=== PATIENT | male | born 1985 | race Asian ===

== ENCOUNTER 2025-01-10 09:35 | Emergency (ER) | payer SELFPAY ==
[~2025-01-10] VITALS: Ht 177.8 cm; Wt 84.0 kg
[2025-01-10 09:37] VITALS: O2SAT 97
[2025-01-10] MEDS: AMOXICILLIN/POTASSIUM CLAVULANATE 875/125MG TAB PO ONE (10:00)
[2025-01-10] MEDS: TETANUS, DIPHTHERIA, PERTUSSIS VAC/PF 0.5ML (>10YR OLD) IM ONE (11:01)
[2025-01-10] MEDS: BACITRACIN ZINC OINT UDPKT TOP ONE (11:02)
[2025-01-10] MEDS: KETOROLAC 30MG/ML VIAL IM ONE (11:02)
[2025-01-10] MEDS: LIDOCAINE HCL/EPINEPHRINE 1%-EPI 1:100,000 20ML VIAL INFIL ONE (11:03)
[2025-01-10] MEDS ORDERED: AMOX1TAB16 MT (12:10)
[2025-01-10] MEDS ORDERED: NEOM1PAC6 TP (12:11)
[2025-01-10 12:26] VITALS: BP 112/73; PULSE 65; RESP 18; TEMP 36.6; O2SAT 97
== END 2025-01-10 12:29 | disposition home or self-care (01) ==
LOC: ER 09:35
DX: S81.812A Laceration without foreign body, left lower leg, initial encounter (principal); W54.0XXA Bitten by dog, initial encounter; Y93.89 Activity, other specified; Y92.89 Other specified places as the place of occurrence of the external cause; Y99.8 Other external cause status
CPT/HCPCS: 73060; 73590; 90715; 12002; 90471; 96372; 99284; J1885; J2004; Z7610 ×4; A6449